=== PATIENT | female | born 1955 | race Caucasian/White ===

== ENCOUNTER 2021-09-13 21:00 | Inpatient (IN) | payer MEDICARE, OTHER ==
[~2021-09-13] VITALS: Ht 167.6 cm; Wt 70.8 kg
[2021-09-13] MEDS ORDERED: METH-806 PO (21:49)
[2021-09-13] MEDS ORDERED: DULO30CA2 PO (21:49)
[2021-09-13] MEDS ORDERED: CYCL30DR OP (21:49)
[2021-09-13] MEDS ORDERED: METO-356 PO (21:49)
[2021-09-13] MEDS ORDERED: GABA800T11 PO (21:49)
[2021-09-13] MEDS ORDERED: NITR0.4T48 SL (21:49)
[2021-09-13] MEDS ORDERED: MIRT45TA83 PO (21:49)
[2021-09-13] MEDS ORDERED: OMEP20CA15 PO (21:49)
[2021-09-13] MEDS ORDERED: HYDR200T4 PO (21:49)
[2021-09-13] MEDS ORDERED: ASPI-1420 PO (21:49)
[2021-09-13] MEDS ORDERED: LEVO50TA8 PO (21:49)
[2021-09-13] MEDS ORDERED: MECL-159 PO (21:49)
[2021-09-13] MEDS ORDERED: ZOLP10TA2 PO (21:50)
[2021-09-13] MEDS ORDERED: QUET200T PO (21:50)
[2021-09-13] MEDS ORDERED: SUMA100T16 PO (21:50)
[2021-09-13] MEDS ORDERED: ROSU10TA2 PO (21:50)
[2021-09-13] MEDS ORDERED: ONDA4TAB11 PO (21:50)
[2021-09-13] MEDS ORDERED: PILO5TAB10 PO (21:50)
[2021-09-13] MEDS ORDERED: PREG200C PO (21:50)
[2021-09-13] MEDS ORDERED: TRAZ300T2 PO (21:50)
--- NOTE | 2021-09-13 23:25 | NUR ---
Pt medically cleared by Dr. Wood.
[2021-09-14 00:45] VITALS: BP 120/72
[2021-09-14] MEDS ORDERED: MAGNESIUM HYDROXIDE 30 ML LIQUID UDC PO PRN (00:45)
[2021-09-14] MEDS: LORAZEPAM 1 MG TABLET PO PRN ×2 (01:31→19:33)
[2021-09-14] MEDS: MAG HYDROX/AL HYDROX/SIMETH 30 ML LIQUID UDC PO PRN ×3 (01:56→17:48)
--- NOTE | 2021-09-14 02:11 | NUR ---
GPS ADMISSION NOTE: Patient is a 66 year old female, brought to the hospital via ambulance from [facility], were she was placed on a 5150 for DTS. Per the hold, A wellness check was done on the patient because she was not responding to phone calls from her psychiatrist. At that time,the patient did verbalize that she had recent thoughts of hurting herself, and worsening depression. Upon face to face evaluation, the patient was alert and oriented, but presented as anxious and labile. Patient cried easily and verbalized wanting to go home. This patient did admit to having a drug problem that's been ongoing for years. Stating that she has " been to rehab many times". According to the patients history, she has many health problems ,as well as, mental health issues. Including Bipolar type 2 , anxiety and polysubstance abuse. Patient was willing to take a shower, and the VS were stable. Patient also was in a hurry to go to her room and requested medication for her anxiety, and " Sour stomach ". This patient admitted having SI recently, but denied having SI when being admitted . This writer producer was able to make a verbal contract for safety with the patient, at that time. A patients rights handbook and Advisement were provided to her, the unit rules were made clear and the plan of care was discussed. Staff will enforce safety stratiges and monitor patients mood swings closely. No acute issues at this time.
--- NOTE | 2021-09-14 06:31 | NUR ---
Patient has slept for 4.30 hours so far. Frequent rounding done to ensure a safe environment. No acute issues at this time.
[2021-09-14 07:50] VITALS: BP 131/76
[2021-09-14] MEDS ORDERED: GABAPENTIN 400 MG CAPSULE PO SCH (09:00)
[2021-09-14] MEDS: ASPIRIN EC 81 MG TABLET.DR PO SCH (09:55)
[2021-09-14] MEDS: DULOXETINE 30 MG CAPSULE.DR PO SCH (09:55)
[2021-09-14] MEDS: HYDROXYCHLOROQUINE SULFATE 200 MG TABLET PO SCH ×2 (09:55→16:24)
[2021-09-14] MEDS: LEVOTHYROXINE SODIUM 50 MCG TABLET PO SCH (09:55)
[2021-09-14] MEDS: LAMOTRIGINE 25 MG TABLET PO SCH ×2 (09:55→21:00)
[2021-09-14] MEDS: METOPROLOL SUCCINATE XL 25 MG TAB.SR.24H PO SCH (09:55)
[2021-09-14] MEDS ORDERED: SUMA50TA17 PO (11:43)
[2021-09-14] MEDS ORDERED: METH-807 PO (11:47)
[2021-09-14] MEDS ORDERED: DULO60CA45 PO (11:57)
[2021-09-14 16:20] VITALS: BP 126/72
--- NOTE | 2021-09-14 17:40 | NUR ---
PT COMPLAINING OF 7/10 CHEST PAIN THAT RADIATES TO HER HEAD. STATES IT FEELS LIKE "PRESSURE". PT STATES ANGINA HAPPENS QUITE OFTEN AT HOME. CALLED DR. MCARTHUR AND RECEIVED ORDERS FOR STAT TROPONIN AND EKG, AND NITRO SL PRN ORDER. NOTED AND WILL CARRY OUT.
[2021-09-14] MEDS ORDERED: NITROGLYCERIN 0.4 MG/TAB BOTTLE SL PRN (17:45)
--- NOTE | 2021-09-14 17:50 | NUR ---
first dose Nitro SL given now. BP 112/64 . Pt remains calm at this time
--- NOTE | 2021-09-14 17:57 | NUR ---
Reassessment after 5 minutes of first dose has been effective. Pt states 0/10 pain, "i feel much better, thank you." EKG shows NSR. Instructed if feelings of angina reoccur, to inform staff immediately.
[2021-09-14] MEDS: ACETAMINOPHEN 325 MG TABLET PO PRN (19:33)
[2021-09-14 20:00] VITALS: BP 135/77
[2021-09-14] MEDS: QUETIAPINE FUMARATE 200 MG TABLET PO SCH (21:00)
--- NOTE | 2021-09-15 03:24 | NUR ---
Received the patient at start of the shift c/o a headache r/t taking a Nitro SL. The patient denied active chest pain, but was anxious in general. Patient medicated at that time. This proposal manager writer made a verbal contract with the patient for safety. The patient denied SI, but teared up when proposal manager writer was trying to have a meaningful conversations about her real feelings. The patient was not forthcoming or willing to express herself at that time. Safety stratiges are in place and this proposal manager writer will continue to offer reassurance and comfort when needed . The patient has been calm and cooperative with staff, just mostly withdrawn and depressed.
[2021-09-15] MEDS: LEVOTHYROXINE SODIUM 50 MCG TABLET PO SCH (06:10)
[2021-09-15 07:30] VITALS: BP_SYST 104; BP_SYST 143; BP_DIAS 65; BP_DIAS 93
[2021-09-15] MEDS: ASPIRIN EC 81 MG TABLET.DR PO SCH (08:02)
[2021-09-15] MEDS: HYDROXYCHLOROQUINE SULFATE 200 MG TABLET PO SCH ×2 (08:02→16:48)
[2021-09-15] MEDS: METOPROLOL SUCCINATE XL 25 MG TAB.SR.24H PO SCH (08:02)
[2021-09-15] MEDS: DULOXETINE 30 MG CAPSULE.DR PO SCH (08:02)
[2021-09-15] MEDS: LAMOTRIGINE 25 MG TABLET PO SCH ×2 (08:02→20:32)
[2021-09-15] MEDS: MAG HYDROX/AL HYDROX/SIMETH 30 ML LIQUID UDC PO PRN ×2 (09:39→17:25)
[2021-09-15] MEDS: LORAZEPAM 1 MG TABLET PO PRN (12:48)
--- NOTE | 2021-09-15 14:27 | NUR ---
received call from Anna from laboratory of [facility], notifying pt is MRSA positive. Will notify MD for orders
--- NOTE | 2021-09-15 14:36 | NUR ---
Called epic exchange for Dr. Davila. Awaiting call back.
--- NOTE | 2021-09-15 14:38 | NUR ---
Dr. Davila called back with orders for Bactroban oint BIDx5 days. Noted and will carry out.
[2021-09-15 15:21] VITALS: BP 117/67
[2021-09-15 20:00] VITALS: BP 131/67
[2021-09-15] MEDS: QUETIAPINE FUMARATE 200 MG TABLET PO SCH (20:32)
[2021-09-15] MEDS: MUPIROCIN 2% OINT 22 GM TUBE NS SCH (20:32)
[2021-09-15] MEDS: ZOLPIDEM 5 MG TABLET PO PRN (22:06)
[2021-09-16] MEDS: LEVOTHYROXINE SODIUM 50 MCG TABLET PO SCH (06:42)
[2021-09-16 08:01] VITALS: BP 120/80
[2021-09-16] MEDS: HYDROXYCHLOROQUINE SULFATE 200 MG TABLET PO SCH ×2 (08:57→16:11)
[2021-09-16] MEDS: ASPIRIN EC 81 MG TABLET.DR PO SCH (08:57)
[2021-09-16] MEDS: DULOXETINE 30 MG CAPSULE.DR PO SCH (08:57)
[2021-09-16] MEDS: LAMOTRIGINE 25 MG TABLET PO SCH ×2 (08:58→20:04)
[2021-09-16] MEDS: METOPROLOL SUCCINATE XL 25 MG TAB.SR.24H PO SCH (08:58)
[2021-09-16] MEDS ORDERED: FAMOTIDINE 20 MG TABLET PO SCH (09:00)
[2021-09-16] MEDS ORDERED: CALCIUM CARBONATE 500 MG TAB.CHEW PO PRN (09:00)
[2021-09-16] MEDS: MUPIROCIN 2% OINT 22 GM TUBE NS SCH ×2 (09:02→20:05)
[2021-09-16 09:37] LABS: IRON, SERUM 79 ug/dL (50-175)
--- NOTE | 2021-09-16 09:46 | NUR ---
Firearms Report: Restaurant Assistant Manager completed and submitted a [employer] firearms report for 5150 danger to self certifications. A copy of report has been placed in patient chart.
[2021-09-16] MEDS: LORAZEPAM 1 MG TABLET PO PRN ×2 (10:09→17:43)
--- NOTE | 2021-09-16 11:16 | NUR ---
ARY Initial Discharge Plan: Patient resides at home alone [address] [place] [address] ([phone]). Patient has family however not involved in her treatment or discharge plan. Patient would like to return home upon discharge. ARY will continue to work with patient, family, and MD to ensure a safe and proper discharge plan.
--- NOTE | 2021-09-16 11:16 | NUR ---
Brief Substance Abuse Intervention: Patient was provided with a brief substance abuse intervention and referred to the following substance abuse programs: [facility]stance Abuse Self-helpline ([phone]); [facility] [address] [place] [address] ([phone]); [facility] [address] [facility] [address] ([phone]); [facility] ([phone]); [facility] ([phone]); [facility] ([phone]); [facility] ([phone]).
[2021-09-16] MEDS ORDERED: SUMATRIPTAN SUCCINATE 50 MG TABLET PO PRN (11:30)
[2021-09-16] MEDS ORDERED: NITROGLYCERIN 0.4 MG/TAB BOTTLE SL PRN (11:30)
[2021-09-16] MEDS ORDERED: ONDANSETRON ODT 4 MG TAB.RAPDIS SL PRN (11:30)
[2021-09-16] MEDS ORDERED: MECLIZINE HCL 25 MG TABLET PO PRN (11:30)
[2021-09-16] MEDS ORDERED: Medication Not On Formulary EA (Pregabalin (Lyrica) 200 MG) PO SCH (13:00)
[2021-09-16] MEDS ORDERED: PILOCARPINE HCL 5 MG PO SCH (13:00)
[2021-09-16] MEDS: PREGABALIN 100 MG CAPSULE PO SCH ×2 (13:20→16:08)
[2021-09-16 16:00] VITALS: BP 102/75
[2021-09-16] MEDS ORDERED: Medication Not On Formulary EA (Omeprazole 20 MG) PO SCH (17:00)
--- NOTE | 2021-09-16 18:39 | NUR ---
Patient resting in bed. No signs of acute distress. Patient denies pain/ discomfort. Patient denies SI/ HI. Patient ambulatory and able to care for self. Interacts with staff and peers with periods of being withdrawn and depressed. Patient complained of anxiety, Ativan PRN given. During advisement of 14 day hold, patient became upset and cried. Software Development Advisor encouraged expression of feelings and listened. Patient stated she did not want to stay in the hospital for another 14 days, that no one would take care of her dog and that she would lose her home. Software Development Advisor listened and educated patient on 14 day policy and patient verbalized understanding. Informed patient SW is available to assist with her concerns and patient stated understanding. Frequent patient rounding for safety. Will endorse to incoming shift for continuity of care.
[2021-09-16] MEDS: ATORVASTATIN 20 MG TABLET PO SCH (20:04)
[2021-09-16] MEDS: QUETIAPINE FUMARATE 200 MG TABLET PO SCH (20:04)
[2021-09-16 20:20] VITALS: BP 115/50
[2021-09-16] MEDS ORDERED: Medication Not On Formulary EA (Rosuvastatin Calcium (Crestor) 10 MG) PO SCH (21:00)
[2021-09-16] MEDS: ZOLPIDEM 5 MG TABLET PO PRN (21:32)
[2021-09-17] MEDS: PANTOPRAZOLE SODIUM 40 MG TABLET.DR PO SCH (06:10)
[2021-09-17] MEDS: LEVOTHYROXINE SODIUM 50 MCG TABLET PO SCH (06:10)
[2021-09-17 07:30] VITALS: BP 114/70
[2021-09-17] MEDS: DULOXETINE 30 MG CAPSULE.DR PO SCH (08:13)
[2021-09-17] MEDS: MUPIROCIN 2% OINT 22 GM TUBE NS SCH ×2 (08:13→20:40)
[2021-09-17] MEDS: ASPIRIN EC 81 MG TABLET.DR PO SCH (08:13)
[2021-09-17] MEDS: PREGABALIN 100 MG CAPSULE PO SCH ×3 (08:13→17:11)
[2021-09-17] MEDS: LAMOTRIGINE 25 MG TABLET PO SCH ×2 (08:13→20:24)
[2021-09-17] MEDS: HYDROXYCHLOROQUINE SULFATE 200 MG TABLET PO SCH ×2 (08:14→17:11)
[2021-09-17] MEDS: METOPROLOL SUCCINATE XL 25 MG TAB.SR.24H PO SCH (08:15)
[2021-09-17] MEDS: LORAZEPAM 1 MG TABLET PO PRN ×2 (10:20→15:53)
--- NOTE | 2021-09-17 10:21 | NUR ---
PATIENT C/O ANXIETY. ATIVAN 1 MG PO GIVEN PER PATIENT REQUESTED.
--- NOTE | 2021-09-17 11:21 | NUR ---
patient stated feeling better now. prn effective for anxiety.
[2021-09-17 15:11] VITALS: BP 105/61
--- NOTE | 2021-09-17 15:53 | NUR ---
patient c/o anxiety. ativan 1 mg po given.
--- NOTE | 2021-09-17 17:58 | NUR ---
Assumed care of patient at 1630. Patient is cooperative, compliant, and visible on the unit. noted with appropriate interaction with others. patient is compliant with medications. Denies suicidal and homicidal ideation. patient is able to ambulate independently and perform self care and ADL's independently. patient encouraged to participate in unit groups and therapeutic milieu.
[2021-09-17 19:47] VITALS: BP 117/67
[2021-09-17] MEDS: FAMOTIDINE 20 MG TABLET PO SCH (20:23)
[2021-09-17] MEDS: QUETIAPINE FUMARATE 200 MG TABLET PO SCH (20:23)
[2021-09-17] MEDS: ATORVASTATIN 20 MG TABLET PO SCH (20:23)
[2021-09-17] MEDS: ZOLPIDEM 5 MG TABLET PO PRN (21:09)
[2021-09-18] MEDS: LEVOTHYROXINE SODIUM 50 MCG TABLET PO SCH (06:21)
[2021-09-18] MEDS: PANTOPRAZOLE SODIUM 40 MG TABLET.DR PO SCH (06:21)
[2021-09-18 07:30] VITALS: BP 128/66
[2021-09-18] MEDS: LORAZEPAM 1 MG TABLET PO PRN ×2 (09:50→18:12)
[2021-09-18] MEDS: DULOXETINE 30 MG CAPSULE.DR PO SCH (09:51)
[2021-09-18] MEDS: ASPIRIN EC 81 MG TABLET.DR PO SCH (09:51)
[2021-09-18] MEDS: PREGABALIN 100 MG CAPSULE PO SCH ×3 (09:51→18:13)
[2021-09-18] MEDS: HYDROXYCHLOROQUINE SULFATE 200 MG TABLET PO SCH ×2 (09:51→18:15)
[2021-09-18] MEDS: METOPROLOL SUCCINATE XL 25 MG TAB.SR.24H PO SCH (09:52)
[2021-09-18] MEDS: LAMOTRIGINE 25 MG TABLET PO SCH ×2 (09:52→20:57)
[2021-09-18] MEDS: MUPIROCIN 2% OINT 22 GM TUBE NS SCH ×2 (09:52→20:58)
--- NOTE | 2021-09-18 12:43 | NUR ---
ARY PC Hearing: Patient had 5250 probable cause hearing today and it was upheld for grave disability.
[2021-09-18 16:00] VITALS: BP 94/47
[2021-09-18 20:00] VITALS: BP 119/67
[2021-09-18] MEDS: QUETIAPINE FUMARATE 200 MG TABLET PO SCH (20:57)
[2021-09-18] MEDS: ATORVASTATIN 20 MG TABLET PO SCH (20:57)
[2021-09-18] MEDS: FAMOTIDINE 20 MG TABLET PO SCH (20:57)
[2021-09-19] MEDS: LEVOTHYROXINE SODIUM 50 MCG TABLET PO SCH (06:48)
[2021-09-19] MEDS: PANTOPRAZOLE SODIUM 40 MG TABLET.DR PO SCH (06:48)
[2021-09-19 07:30] VITALS: BP 119/69
[2021-09-19] MEDS: PREGABALIN 100 MG CAPSULE PO SCH ×3 (08:41→17:07)
[2021-09-19] MEDS: HYDROXYCHLOROQUINE SULFATE 200 MG TABLET PO SCH ×2 (08:41→17:07)
[2021-09-19] MEDS: DULOXETINE 30 MG CAPSULE.DR PO SCH (08:42)
[2021-09-19] MEDS: ASPIRIN EC 81 MG TABLET.DR PO SCH (08:43)
[2021-09-19] MEDS: LAMOTRIGINE 25 MG TABLET PO SCH ×2 (08:43→20:25)
[2021-09-19] MEDS: METOPROLOL SUCCINATE XL 25 MG TAB.SR.24H PO SCH (08:43)
[2021-09-19] MEDS: MUPIROCIN 2% OINT 22 GM TUBE NS SCH ×2 (08:44→20:24)
[2021-09-19] MEDS: LORAZEPAM 1 MG TABLET PO PRN ×2 (09:17→15:39)
--- NOTE | 2021-09-19 10:43 | NUR ---
ARY Coordination of Care: ARY spoke with Cindi ([phone]) from [facility] who will be arranging a train ticket for the patient for tomorrows discharge transportation.
--- NOTE | 2021-09-19 11:37 | NUR ---
Gps/Mask Design Engineer- Attended and participated in her group therapy, had been in and out of her group., easily redirected , interacts when engaged. Verbalized feelings of being anxious, claimed she was told plan dc. in am, requesting all of her valuables and rings from the safe, reassured patient will return all of her valuables back to her.
[2021-09-19] MEDS: ACETAMINOPHEN 325 MG TABLET PO PRN (13:12)
[2021-09-19 16:00] VITALS: BP 101/61
[2021-09-19] MEDS: FAMOTIDINE 20 MG TABLET PO SCH (20:25)
[2021-09-19] MEDS: QUETIAPINE FUMARATE 200 MG TABLET PO SCH (20:25)
[2021-09-19] MEDS: ATORVASTATIN 20 MG TABLET PO SCH (20:25)
[2021-09-19 21:51] VITALS: BP 110/58
[2021-09-19] MEDS: ZOLPIDEM 5 MG TABLET PO PRN (22:47)
[2021-09-20] MEDS: LORAZEPAM 1 MG TABLET PO PRN ×2 (04:30→12:59)
--- NOTE | 2021-09-20 04:54 | NUR ---
Received the patient in her room last night. Awake , alert and oriented x 4. Patient denied SI and made a contract for safety with this leader writer. The patient verbalized anxiety about the discharge process. Especially taking a train. Reassurance provided and questions answered. Patient requested PRN medications during the night for sleep and anxiety. Safety stratiges in place. Continuing to make frequent rounds.
[2021-09-20] MEDS: LEVOTHYROXINE SODIUM 50 MCG TABLET PO SCH (05:38)
[2021-09-20] MEDS: PANTOPRAZOLE SODIUM 40 MG TABLET.DR PO SCH (05:38)
[2021-09-20 07:30] VITALS: BP 96/59
--- NOTE | 2021-09-20 07:58 | NUR ---
SW Discharge Note: Patient will be discharged home [address] [place] [address] ([phone]). Patient is provided with Taxi Voucher to [employer] [address] [place] [address] at 1:30PM. Patient is provided with a train ticket by [facility] renny with Cindi ([phone]) departure at 3:47PM today to arrive in [place]. Patient presents alert and oriented x4 and is aware and agreeable with discharge plan. Patient denies suicidal or homicidal ideation. Patient is independent and would like to return home. Patient presents with appropriate mood and congruent affect. Patient will be following up with her psychiatrist Dr. Hiral Mayo [address] [place], [place] [address] ([phone]). Patient will be following up with their primary physician Dr. Nacho Vaughn [address] [place] [address] ([phone]). Patient was provided with a brief substance abuse intervention and referred to [place] [facility] [address] [place] [address] ([phone]); [facility] [address], [address], [place] [address] ([phone]); [facility] ([phone]); [facility] ([phone]); [facility] ([phone]); and National Suicide Prevention [facility] ([phone]).
[2021-09-20] MEDS: ASPIRIN EC 81 MG TABLET.DR PO SCH (08:25)
[2021-09-20] MEDS: PREGABALIN 100 MG CAPSULE PO SCH ×2 (08:25→13:00)
[2021-09-20] MEDS: HYDROXYCHLOROQUINE SULFATE 200 MG TABLET PO SCH (08:25)
[2021-09-20 08:26] VITALS: BP 96/59
[2021-09-20] MEDS: METOPROLOL SUCCINATE XL 25 MG TAB.SR.24H PO SCH (08:26)
[2021-09-20] MEDS: LAMOTRIGINE 25 MG TABLET PO SCH (08:26)
[2021-09-20] MEDS: DULOXETINE 30 MG CAPSULE.DR PO SCH (08:27)
[2021-09-20] MEDS: MUPIROCIN 2% OINT 22 GM TUBE NS SCH (08:27)
--- NOTE | 2021-09-20 12:49 | NUR ---
Gps/M48 M60 Armor Crewman- Reviewed discharge prescriptions from the psychiatrist , claimed has all medications from home when reviewed all medications (Medical )All belongings given back to patient, including 2 white rings. patient in good spirit, verbalized understanding of discharge instructions. No Complaints noted. Taxi arranged for pecan picker time at 1330.
--- NOTE | 2021-09-20 13:55 | NUR ---
Gps/Senior Net Developer Architect- Discharged patient via taxi in good spirit, no complaints noted, all belongings given back to patient
== END 2021-09-20 14:00 | disposition home or self-care (01) | DRG 885 ==
LOC: ER 21:06 → GPS 09-14 00:37
PROVIDERS: ADMIT Psychiatry & Neurology Psychiatry; ATTEND Internal Medicine
DX: F31.81 Bipolar II disorder (principal); F23 Brief psychotic disorder; R45.851 Suicidal ideations; G40.909 Epilepsy, unspecified, not intractable, without status epilepticus; M35.00 Sjogren syndrome, unspecified; E03.9 Hypothyroidism, unspecified; F41.9 Anxiety disorder, unspecified; J45.909 Unspecified asthma, uncomplicated; K21.9 Gastro-esophageal reflux disease without esophagitis; Z87.442 Personal history of urinary calculi; Z73.6 Limitation of activities due to disability; M62.81 Muscle weakness (generalized); F19.10 Other psychoactive substance abuse, uncomplicated; Z91.51 Personal history of suicidal behavior; Z79.899 Other long term (current) drug therapy
CPT/HCPCS: 36415; 70030-TC; 93005

== ENCOUNTER 2024-11-16 07:32 | Inpatient (IN) | payer MEDICARE, OTHER ==
[~2024-11-16] VITALS: Ht 165.1 cm; Wt 63.5 kg
[~2024-11-16 07:32] MED LIST: ASPI-1420 PO; HYDR200T4 PO; LEVO50TA8 PO; MECL-159 PO; METH-807 PO; METO-356 PO; NITR0.4T48 SL; OMEP20CA15 PO; ONDA4TAB11 PO; PILO5TAB10 PO; PREG200C PO; ROSU10TA2 PO; SUMA50TA17 PO
[2024-11-16] MEDS ORDERED: GABA300C PO (07:58)
[2024-11-16] MEDS ORDERED: POLY119P17 PO (07:58)
[2024-11-16] MEDS ORDERED: DEXL60CA3 PO (07:58)
[2024-11-16] MEDS ORDERED: CITA40TA22 PO (07:58)
[2024-11-16] MEDS ORDERED: LORA0.5T48 PO (07:58)
[2024-11-16] MEDS ORDERED: LINA290C PO (07:58)
[2024-11-16] MEDS ORDERED: PRUC2TAB PO ×2 (07:58→10:29)
[2024-11-16] MEDS ORDERED: CYCL30DR EACHEYE (07:58)
[2024-11-16] MEDS ORDERED: QUET300T2 PO (07:58)
[2024-11-16] MEDS ORDERED: LACT1CAP73 PO (07:58)
[2024-11-16] MEDS ORDERED: SENN-301 PO (07:59)
[2024-11-16] MEDS ORDERED: ZOLP10TA2 PO (07:59)
[2024-11-16] MEDS ORDERED: VITA-337 PO (07:59)
[2024-11-16] MEDS ORDERED: TETR12.5 PO (07:59)
[2024-11-16 09:37] VITALS: BP 146/77; TEMP 98.2; O2SAT 98
[2024-11-16] MEDS: BLOOD SUGAR DIAGNOSTIC 1 EACH STRIP VI ONE (10:00)
[2024-11-16] MEDS ORDERED: ZOLPIDEM 5 MG TABLET PO PRN (10:00)
[2024-11-16] MEDS ORDERED: MAGNESIUM HYDROXIDE 30 ML LIQUID UDC PO PRN (10:00)
[2024-11-16] MEDS ORDERED: LORAZEPAM 1 MG TABLET PO PRN (10:00)
[2024-11-16] MEDS ORDERED: LACT10SO58 PO (10:29)
[2024-11-16] MEDS ORDERED: VITA-354 PO (10:29)
[2024-11-16] MEDS: CITALOPRAM 20 MG TABLET PO SCH (11:21)
[2024-11-16] MEDS: MAG HYDROX/AL HYDROX/SIMETH 30 ML LIQUID UDC PO PRN (13:11)
[2024-11-16] MEDS: LORAZEPAM 1 MG TABLET PO PRN (14:30)
[2024-11-16] MEDS: ONDANSETRON ODT 4 MG TAB.RAPDIS SL PRN (14:31)
[2024-11-16 15:36] VITALS: BP 109/61; TEMP 99.8; O2SAT 96
[2024-11-16 15:39] LABS: *BILIRUBIN,URIN 1+ (NEGATIVE); *BLOOD, URINE NEGATIVE (NEGATIVE); *CLARITY,URINE CLEAR (CLEAR); *COLOR,URINE YELLOW (YELLOW); *KETONES,URINE 1+ (NEGATIVE); *PROTEIN,URINE 1+ (NEGATIVE); LEUKOCYTE ESTERASE ,URINE 1+ (NEGATIVE); NITRITE, URINE POSITIVE (NEGATIVE); UGLUCOSE NEGATIVE (NEGATIVE)
[2024-11-16 15:40] LABS: BACTERIA,URINE FEW /HPF (NONE SEEN); RBC,URINE 0-3 /HPF (0-3)
[2024-11-16] MEDS: CEphaleXIN 500 MG CAPSULE PO SCH (16:37)
[2024-11-16] MEDS: POLYVINYL ALCOHOL OPHT DROPS 15 ML BOTTLE EACHEYE SCH (16:37)
[2024-11-16] MEDS: SENNOSIDES/DOCUSATE SODIUM TABLET PO SCH (16:37)
[2024-11-16] MEDS: VITAMIN E 400 UNITS CAPSULE PO SCH (16:37)
[2024-11-16] MEDS ORDERED: VITAMIN E 800 UNIT PO SCH (17:00)
[2024-11-16] MEDS: MIRALAX 17 GM POWD.PACK PO SCH (17:22)
[2024-11-16] MEDS ORDERED: POLYETHYLENE GLYCOL 3350 238 GM POWDER PO SCH (18:00)
[2024-11-16 20:00] VITALS: BP 126/73; TEMP 98.6; O2SAT 98
[2024-11-16] MEDS: LACTULOSE 20 G/30 ML LIQUID UDC PO SCH (20:33)
[2024-11-16] MEDS: ATORVASTATIN 20 MG TABLET PO SCH (20:33)
[2024-11-16] MEDS: QUETIAPINE FUMARATE 100 MG TABLET PO SCH (20:33)
[2024-11-16] MEDS: GABAPENTIN 300 MG CAPSULE PO SCH (20:33)
[2024-11-16] MEDS ORDERED: Medication Not On Formulary EA (Rosuvastatin Calcium (Crestor) 10 MG) PO SCH (21:00)
[2024-11-16] MEDS: TEMAZEPAM 7.5 MG CAPSULE PO PRN (21:41)
[2024-11-17] MEDS: PANTOPRAZOLE SODIUM 40 MG TABLET.DR PO SCH (07:59)
[2024-11-17] MEDS: LEVOTHYROXINE SODIUM 50 MCG TABLET PO SCH (08:00)
[2024-11-17] MEDS: HYDROXYCHLOROQUINE SULFATE 200 MG TABLET PO SCH (08:00)
[2024-11-17] MEDS: ASPIRIN EC 81 MG TABLET.DR PO SCH (08:03)
[2024-11-17 08:10] VITALS: BP 98/71; TEMP 98.4; O2SAT 98
[2024-11-17] MEDS ORDERED: Medication Not On Formulary EA (Dexlansoprazole (Dexilant) 1 CAP) PO SCH (09:00)
[2024-11-17 09:28] LABS: ALBUMIN 3.7 g/dL (3.4-5.0); BILIRUBIN,DIRECT 0.1 mg/dL (0.0-0.2); BILIRUBIN,TOTAL 0.5 mg/dL (0.2-1.0); CALCIUM 9.1 mg/dL (8.5-10.1); POTASSIUM 3.6 mmol/L (3.5-5.1); TOTAL PROTEIN, SERUM 7.3 g/dL (6.4-8.2)
[2024-11-17 16:12] VITALS: BP 110/64; TEMP 98; O2SAT 100
[2024-11-17] MEDS: ENSURE ENLIVE (VAN) 240 ML LIQUID PO SCH (17:30)
[2024-11-17] MEDS: ONDANSETRON 4 MG/2 ML VIAL IM ONE (18:37)
[2024-11-17 19:44] VITALS: BP 113/63; TEMP 97.9; O2SAT 97
[2024-11-17] MEDS: ACIDOPHILUS/BULGARICUS CHEW TAB PO SCH (20:40)
[2024-11-18 08:10] VITALS: BP 107/63; TEMP 98.2; O2SAT 100
[2024-11-18 16:30] VITALS: BP 110/67; TEMP 98.3; O2SAT 100
[2024-11-18 20:00] VITALS: BP 102/60; TEMP 98.5; O2SAT 97
[2024-11-18 20:03] LABS: BASOPHILS # (AUTO) 0.1 K/UL (0.0-0.2); BASOPHILS % (AUTO) 2.5 % (0.0-2.0); EOSINOPHILS # (AUTO) 0.1 K/uL (0.0-0.7); HEMATOCRIT 33.6 % (31.2-41.9); HEMOGLOBIN 11.4 g/dL (10.9-14.3); LYMPHOCYTES # (AUTO) 1.6 K/uL (0.8-4.8); LYMPHOCYTES % (AUTO) 38.1 % (20.5-51.5); MEAN CORPUSCULAR HEMOGLOBIN 30.1 uug (24.7-32.8); MEAN CORPUSCULAR HGB CONC 34 g/dL (32.3-35.6); MEAN CORPUSCULAR VOLUME 88.9 fL (75.5-95.3); MONOCYTES # (AUTO) 0.4 K/uL (0.1-1.30); MONOCYTES % (AUTO) 10.7 % (0.0-11.0); NEUTROPHILS # (AUTO) 1.9 K/uL (1.8-8.9); NEUTROPHILS % (AUTO) 45.7 % (38.5-71.5); PLATELET COUNT (AUTO) 182 K/uL (179-408); RED BLOOD CELL COUNT(AUTO) 3.78 MIL/uL (3.63-4.92); RED CELL DISTRIBUTION WIDTH 14.9 % (12.3-17.7); WHITE BLOOD COUNT (AUTO) 4.1 K/uL (3.8-11.8)
[2024-11-18 20:12] LABS: CALCIUM 9.1 mg/dL (8.5-10.1); POTASSIUM 4.3 mmol/L (3.5-5.1)
[2024-11-18 20:13] LABS: DIFFERENTIAL COMMENT 1
[2024-11-18] MEDS: QUETIAPINE FUMARATE 100 MG TABLET PO SCH (20:18)
[2024-11-18] MEDS ORDERED: METRONIDAZOLE 500 MG/NS 100ML 200 ML IV ONE (20:50)
[2024-11-18] MEDS ORDERED: CEFTRIAXONE /D5W 50ML IVPB **ER PYXIS IV ONE (20:51)
[2024-11-18] MEDS: CEFTRIAXONE 1 G in IV DEXTROSE 5% 50 ML IV SCH (21:50)
[2024-11-18] MEDS: IV NS 1000 ML 1,000 ML IV SCH (21:56)
[2024-11-18] MEDS: METRONIDAZOLE 500 MG/NS 100ML 500 MG in PREMIXED 1 EACH IV SCH (22:36)
[2024-11-19 08:10] VITALS: BP 103/53; TEMP 98; O2SAT 98
[2024-11-19] MEDS: DICYCLOMINE HCL 10 MG CAPSULE PO ONE (13:03)
[2024-11-19 14:16] LABS: BASOPHILS # (AUTO) 0.1 K/UL (0.0-0.2); BASOPHILS % (AUTO) 2.9 % (0.0-2.0); EOSINOPHILS # (AUTO) 0.1 K/uL (0.0-0.7); EOSINOPHILS % (AUTO) 3.6 % (0.0-7.0); HEMATOCRIT 30.6 % (31.2-41.9); HEMOGLOBIN 10.4 g/dL (10.9-14.3); LYMPHOCYTES # (AUTO) 1.2 K/uL (0.8-4.8); LYMPHOCYTES % (AUTO) 42.9 % (20.5-51.5); MEAN CORPUSCULAR HEMOGLOBIN 30.5 uug (24.7-32.8); MEAN CORPUSCULAR HGB CONC 34 g/dL (32.3-35.6); MEAN CORPUSCULAR VOLUME 89.8 fL (75.5-95.3); MONOCYTES # (AUTO) 0.3 K/uL (0.1-1.30); NEUTROPHILS # (AUTO) 1.1 K/uL (1.8-8.9); NEUTROPHILS % (AUTO) 39.6 % (38.5-71.5); PLATELET COUNT (AUTO) 148 K/uL (179-408); RED BLOOD CELL COUNT(AUTO) 3.41 MIL/uL (3.63-4.92); RED CELL DISTRIBUTION WIDTH 15.2 % (12.3-17.7); WHITE BLOOD COUNT (AUTO) 2.8 K/uL (3.8-11.8)
[2024-11-19 14:29] LABS: DIFFERENTIAL COMMENT 1
[2024-11-19 14:37] LABS: CALCIUM 8.3 mg/dL (8.5-10.1); CREATININE 0.9 mg/dL (0.6-1.3); POTASSIUM 3.7 mmol/L (3.5-5.1)
[2024-11-19 14:40] LABS: PHOSPHOROUS 3.2 mg/dL (2.5-4.9)
[2024-11-19 16:10] VITALS: BP 103/60; TEMP 98.1; O2SAT 99
[2024-11-19 20:00] VITALS: BP 119/62; TEMP 97.9; O2SAT 97
[2024-11-19 20:46] LABS: ANISOCYTOSIS 1+; LYMPHOCYTES % (MANUAL) 21 % (20-40); METAMYELOCYTES % 1 % (0-1); MONOCYTES % (MANUAL) 11 % (2-10); NEUTROPHILS % (MANUAL) 67 % (42-75); OVALOCYTES 1+; PLATELET ESTIMATE DECREASED
[2024-11-20 07:52] VITALS: BP 105/55; TEMP 97.4; O2SAT 96
[2024-11-20 08:24] LABS: BASOPHILS # (AUTO) 0.1 K/UL (0.0-0.2); BASOPHILS % (AUTO) 2.8 % (0.0-2.0); EOSINOPHILS # (AUTO) 0.1 K/uL (0.0-0.7); EOSINOPHILS % (AUTO) 3.3 % (0.0-7.0); HEMATOCRIT 30.8 % (31.2-41.9); HEMOGLOBIN 10.5 g/dL (10.9-14.3); LYMPHOCYTES % (AUTO) 33.2 % (20.5-51.5); MEAN CORPUSCULAR HEMOGLOBIN 30.8 uug (24.7-32.8); MEAN CORPUSCULAR HGB CONC 34 g/dL (32.3-35.6); MEAN CORPUSCULAR VOLUME 90.6 fL (75.5-95.3); MONOCYTES # (AUTO) 0.3 K/uL (0.1-1.30); MONOCYTES % (AUTO) 8.7 % (0.0-11.0); NEUTROPHILS # (AUTO) 1.5 K/uL (1.8-8.9); PLATELET COUNT (AUTO) 150 K/uL (179-408); RED CELL DISTRIBUTION WIDTH 14.7 % (12.3-17.7); WHITE BLOOD COUNT (AUTO) 2.9 K/uL (3.8-11.8)
[2024-11-20 08:35] LABS: CALCIUM 8.3 mg/dL (8.5-10.1); CREATININE 0.8 mg/dL (0.6-1.3); MAGNESIUM 2.1 mg/dL (1.8-2.4); PHOSPHOROUS 2.9 mg/dL (2.5-4.9); POTASSIUM 3.8 mmol/L (3.5-5.1)
[2024-11-20 08:45] LABS: DIFFERENTIAL COMMENT 1
[2024-11-20] MEDS: ACETAMINOPHEN 325 MG TABLET PO PRN (08:50)
[2024-11-20 10:16] LABS: EOSINOPHILS % (MANUAL) 2 % (0-8); LYMPHOCYTES % (MANUAL) 38 % (20-40); MONOCYTES % (MANUAL) 9 % (2-10); NEUTROPHILS % (MANUAL) 51 % (42-75); PLATELET ESTIMATE DECREASED
[2024-11-20] MEDS: METRONIDAZOLE 500 MG TABLET PO SCH (13:36)
[2024-11-20 16:00] VITALS: BP 104/54; TEMP 98.9; O2SAT 97
[2024-11-20 20:00] VITALS: BP 134/68; TEMP 100; O2SAT 98
[2024-11-20] MEDS: CEphaleXIN 500 MG CAPSULE PO SCH (20:41)
[2024-11-21 08:10] VITALS: BP 118/64; TEMP 98.6; O2SAT 100
[2024-11-21 09:02] LABS: BASOPHILS # (AUTO) 0.1 K/UL (0.0-0.2); BASOPHILS % (AUTO) 2.2 % (0.0-2.0); EOSINOPHILS # (AUTO) 0.1 K/uL (0.0-0.7); EOSINOPHILS % (AUTO) 2.4 % (0.0-7.0); HEMATOCRIT 31.4 % (31.2-41.9); HEMOGLOBIN 10.9 g/dL (10.9-14.3); LYMPHOCYTES # (AUTO) 0.8 K/uL (0.8-4.8); LYMPHOCYTES % (AUTO) 21.6 % (20.5-51.5); MEAN CORPUSCULAR HEMOGLOBIN 30.9 uug (24.7-32.8); MEAN CORPUSCULAR HGB CONC 35 g/dL (32.3-35.6); MEAN CORPUSCULAR VOLUME 89.2 fL (75.5-95.3); MONOCYTES # (AUTO) 0.3 K/uL (0.1-1.30); MONOCYTES % (AUTO) 9.2 % (0.0-11.0); NEUTROPHILS # (AUTO) 2.4 K/uL (1.8-8.9); NEUTROPHILS % (AUTO) 64.6 % (38.5-71.5); PLATELET COUNT (AUTO) 177 K/uL (179-408); RED BLOOD CELL COUNT(AUTO) 3.52 MIL/uL (3.63-4.92); RED CELL DISTRIBUTION WIDTH 14.9 % (12.3-17.7); WHITE BLOOD COUNT (AUTO) 3.7 K/uL (3.8-11.8)
[2024-11-21 09:07] LABS: DIFFERENTIAL COMMENT 1
[2024-11-21 09:28] LABS: CALCIUM 8.6 mg/dL (8.5-10.1); CREATININE 0.9 mg/dL (0.6-1.3); MAGNESIUM 2.1 mg/dL (1.8-2.4); PHOSPHOROUS 2.2 mg/dL (2.5-4.9); POTASSIUM 3.6 mmol/L (3.5-5.1)
[2024-11-21 16:08] VITALS: BP 124/62; TEMP 98; O2SAT 100
[2024-11-21] MEDS: NEUTRA PHOS PACKET PO ONE (16:50)
[2024-11-21 20:00] VITALS: BP 120/63; TEMP 98.8; O2SAT 100
[2024-11-22 08:12] VITALS: BP 119/64; TEMP 98.1; O2SAT 98
[2024-11-22 16:22] LABS: BASOPHILS # (AUTO) 0.1 K/UL (0.0-0.2); BASOPHILS % (AUTO) 2.2 % (0.0-2.0); EOSINOPHILS % (AUTO) 0.8 % (0.0-7.0); HEMOGLOBIN 11.1 g/dL (10.9-14.3); LYMPHOCYTES # (AUTO) 0.8 K/uL (0.8-4.8); MEAN CORPUSCULAR HEMOGLOBIN 30.1 uug (24.7-32.8); MEAN CORPUSCULAR HGB CONC 34 g/dL (32.3-35.6); MEAN CORPUSCULAR VOLUME 89.2 fL (75.5-95.3); MONOCYTES # (AUTO) 0.4 K/uL (0.1-1.30); MONOCYTES % (AUTO) 10.7 % (0.0-11.0); NEUTROPHILS # (AUTO) 2.2 K/uL (1.8-8.9); NEUTROPHILS % (AUTO) 63.3 % (38.5-71.5); PLATELET COUNT (AUTO) 187 K/uL (179-408); RED CELL DISTRIBUTION WIDTH 14.8 % (12.3-17.7); WHITE BLOOD COUNT (AUTO) 3.5 K/uL (3.8-11.8)
[2024-11-22 16:36] VITALS: BP 130/72; TEMP 98.6; O2SAT 99
[2024-11-22 16:45] LABS: DIFFERENTIAL COMMENT 1
[2024-11-22 17:21] LABS: ALBUMIN 3.5 g/dL (3.4-5.0); BILIRUBIN,TOTAL 0.4 mg/dL (0.2-1.0); CREATININE 0.8 mg/dL (0.6-1.3); MAGNESIUM 2.2 mg/dL (1.8-2.4)
[2024-11-22 20:08] VITALS: BP 114/64; TEMP 97.9; O2SAT 98
[2024-11-23 08:08] VITALS: BP 109/58; TEMP 97.5; O2SAT 100
[2024-11-23] MEDS: DICYCLOMINE HCL 10 MG CAPSULE PO PRN (14:16)
[2024-11-23 16:06] VITALS: BP 105/63; TEMP 97.8; O2SAT 100
[2024-11-23 20:29] VITALS: BP 117/69; TEMP 98.7; O2SAT 98
[2024-11-24 07:43] VITALS: BP 104/74; TEMP 97.8; O2SAT 98
[2024-11-24 16:00] VITALS: BP 137/60; TEMP 97.2; O2SAT 97
[2024-11-24 19:58] VITALS: BP 113/77; TEMP 98.1; O2SAT 100
[2024-11-25 08:08] VITALS: BP 105/46; TEMP 98.4; O2SAT 100
[2024-11-25 16:10] VITALS: BP 100/64; TEMP 98.1; O2SAT 100
[2024-11-25 20:00] VITALS: BP 96/52; TEMP 98.7; O2SAT 98
[2024-11-25] MEDS: QUETIAPINE FUMARATE 100 MG TABLET PO SCH (20:54)
[2024-11-26 09:01] VITALS: BP 99/57; TEMP 98.2; O2SAT 97
[2024-11-26 16:10] VITALS: BP 108/59; TEMP 98; O2SAT 100
[2024-11-26 20:19] VITALS: BP 113/67; TEMP 98.8; O2SAT 96
[2024-11-27 08:12] VITALS: BP 109/65; TEMP 98.3; O2SAT 100
[2024-11-27 16:10] VITALS: BP 92/55; TEMP 98.4; O2SAT 98
[2024-11-27 19:48] VITALS: BP 105/59; TEMP 98.8; O2SAT 99
[2024-11-28 08:12] VITALS: BP 128/69; TEMP 98.7; O2SAT 98
== END 2024-11-28 12:00 | disposition home or self-care (01) | DRG 885 ==
LOC: ER 07:32 → GPS 08:21
PROVIDERS: ADMIT Psychiatry & Neurology Psychiatry
DX: F31.5 Bipolar disorder, current episode depressed, severe, with psychotic features (principal); N39.0 Urinary tract infection, site not specified; K57.32 Diverticulitis of large intestine without perforation or abscess without bleeding; R45.851 Suicidal ideations; D61.818 Other pancytopenia; G40.909 Epilepsy, unspecified, not intractable, without status epilepticus; E03.9 Hypothyroidism, unspecified; Z79.890 Hormone replacement therapy; M35.00 Sjogren syndrome, unspecified; Z90.710 Acquired absence of both cervix and uterus; Z96.652 Presence of left artificial knee joint; Z98.84 Bariatric surgery status; Z98.1 Arthrodesis status; Z87.442 Personal history of urinary calculi; K44.9 Diaphragmatic hernia without obstruction or gangrene; F41.9 Anxiety disorder, unspecified; J45.909 Unspecified asthma, uncomplicated; K59.00 Constipation, unspecified
CPT/HCPCS: 36415; 70030-TC; 71045; 83605; 83690; 83735; 84100; 85025; 93005; J0696; J2405; J3490; J7040; Q0162